=== PATIENT | female | born 1940 | race Caucasian/White ===

== ENCOUNTER → 2016-08-09 | Outpatient (CLI) | payer MEDICARE ==
[~2016-08-09] MED LIST: ACYC-114 PO; ASPI325T4 PO; BUDE10.22 INH; CALC200T3 PO; FLUO40CA2 PO; HYDR-3307 PO; LORA1TAB PO; LOVA40TA2 PO; MEMA28CA PO; OMEP-110 PO
== END | disposition home or self-care (01) ==
LOC: CFH 11:06
PROVIDERS: ATTEND Nurse Practitioner
DX: Z13.820 Encounter for screening for osteoporosis (principal); Z78.0 Asymptomatic menopausal state; M81.0 Age-related osteoporosis without current pathological fracture
CPT/HCPCS: 77080

== ENCOUNTER → 2017-04-25 | Outpatient (CLI) | payer MEDICARE ==
[~2017-04-25] MED LIST changes: +ASPI325T17 PO; -ASPI325T4 PO; +GADOBUTROL 7.5 MMOL/7.5 ML PFS ONE
== END ==
LOC: RAD 12:08
PROVIDERS: ATTEND Nurse Practitioner
DX: G31.89 Other specified degenerative diseases of nervous system (principal); R90.82 White matter disease, unspecified
CPT/HCPCS: 70553; A9585